=== PATIENT | female | born 1945 | race Caucasian/White ===

== ENCOUNTER 2016-10-12 11:55 | Emergency (ER) | payer OTHER, MEDICARE ==
[2016-10-12 12:11] VITALS: BP 138/76; PULSE 87; TEMP 98.3; BMI 28.7
--- NOTE | 2016-10-12 12:57 | PDOC ---
History of Present Illness - General Chief Complaint: Injury Stated Complaint: RT TOE PAIN (PCP SENT) Time Seen by Provider: 10/12/16 12:42 History Source: Patient Exam Limitations: No Limitations - History of Present Illness Initial Comments: CHIEF COMPLAINT: 71 y/o afebrile female with PMH HTN, HLD, IDDM c/o right big toe pain. HISTORY OF PRESENT ILLNESS: 4 days ago a kitchen table fell onto the patient's right big toe. She saw her PCP today who sent her here. Vital signs on arrival are within normal limits. REVIEW OF SYSTEMS: GENERAL/CONSTITUTIONAL: No fever/chills. No weakness. No weight change. HEAD, EYES, EARS, NOSE AND THROAT: No change in vision. No ear pain or discharge. No sore throat. MUSCULOSKELETAL: +right big toe pain. No neck or back pain. SKIN: No rash or easy bruising. NEUROLOGIC: No headache, vertigo, loss of consciousness, or loss of sensation. PHYSICAL EXAM: VITAL_SIGNS: within normal limits GENERAL_APPEARANCE: alert, cooperative, mild obvious discomfort. Patient has a mild limp MENTAL_STATUS: speech clear, oriented X 3, responds appropriately to questions. NEURO: motor intact and sensory intact in injured extremity. EXTREMITIES: good pulse in injured extremity; big toe of right foot is swollen, erythematous, ecchymotic. The patient can move her affected toe but it is TTP. No obvious deformities. SKIN: warm, dry, good color. Past History - Past Medical History Allergies/Adverse Reactions: Allergies Allergy/AdvReac Type Severity Reaction Status Date / Time No Known Allergies Allergy Verified 10/12/16 12:09 Home Medications: Ambulatory Orders Amlodipine/Valsartan/Hcthiazid [Exforge Hct 10-320-25 mg Tab] 1 each PO DAILY Aspirin [ASA -] 81 mg PO DAILY 01/19/13 Glimepiride [Amaryl] 2 mg PO BID 01/19/13 Insulin (LOG) Aspart [NovoLOG -] 10 unit SQ BIDAC #0 01/24/13 Metformin HCl [Glucophage] 500 mg PO BIDAC #0 01/24/13 Naproxen/Esomeprazole Mag [Vimovo Dr 500-20 mg Tablet] 1 each PO BID 04/09/14 Pravastatin Sodium [Pravachol -] 20 mg PO HS 04/09/14 Walker [Ultra-Light Rollator] 1 each ASDIR #1 each 04/09/14 Anemia: No Asthma: No CVA: No COPD: No CHF: No Diabetes: Yes HTN: Yes Hypercholesterolemia: Yes - Psycho/Social/Smoking Cessation Hx Anxiety: No Suicidal Ideation: No Smoking Status: No Smoking History: Never smoked Have you smoked in the past 12 months: No Number of Cigarettes Smoked Daily: 0 Information on smoking cessation initiated: No Hx Alcohol Use: No Drug/Substance Use Hx: No Substance Use Type: None *Physical Exam - Vital Signs Last Vital Signs Temp Pulse Resp BP Pulse Ox 98.3 F 87 18 138/76 98 10/12/16 12:09 10/12/16 12:09 10/12/16 12:09 10/12/16 12:09 10/12/16 12:09 ED Treatment Course - RADIOLOGY Radiology Studies Ordered: Category Date Time Status TOE(S) RIGHT [RAD] Stat Radiology 10/12/16 12:42 Ordered Medical Decision Making - Medical Decision Making A/P: 71 y/o female with right big toe pain s/p trauma. Plan is as follows: 1. xray right toe xray right toe IMPRESSION: Fracture involving the right first proximal and distal phalanx. Will pretty tape her first 2 toes together and put her affected foot in a soft shoe. Instructed her to apply ice to the affected area and f/u with her doctor by the end of the week. The patient verbalizes understanding of all instructions, has no further questions and is awaiting discharge. *DC/Admit/Observation/Transfer Diagnosis at time of Disposition: Fracture of phalanx of right foot, closed Qualifiers: Encounter type: initial encounter Toe: great toe Phalanx: unspecified phalanx Fracture alignment: nondisplaced Qualified Code(s): S92.404A - Nondisplaced unspecified fracture of right great toe, initial encounter for closed fracture - Discharge Dispostion Disposition: HOME Condition at time of disposition: Good - Referrals Referrals: Eros Jaquez MD [Primary Care Provider] - - Patient Instructions Printed Discharge Instructions: DI for Toe Fracture Additional Instructions: Discharge Instructions: -Keep toes taped together for comfort -Use soft shoe for comfort as well -Take over the counter pain medication if needed -Apply ice to the affected toe -Follow up with your doctor by the end of the week
== END 2016-10-12 13:36 | disposition home or self-care (01) ==
LOC: JERFT 11:55
DX: S92.414A Nondisplaced fracture of proximal phalanx of right great toe, initial encounter for closed fracture (principal); S92.424A Nondisplaced fracture of distal phalanx of right great toe, initial encounter for closed fracture; W20.8XXA Other cause of strike by thrown, projected or falling object, initial encounter; Y93.89 Activity, other specified; Y92.030 Kitchen in apartment as the place of occurrence of the external cause; I10 Essential (primary) hypertension; E11.9 Type 2 diabetes mellitus without complications; Z79.4 Long term (current) use of insulin; Z79.84 Long term (current) use of oral hypoglycemic drugs; E78.00 Pure hypercholesterolemia, unspecified
CPT/HCPCS: 73660-TC; 99281-25